=== PATIENT | male | born 1945 | race African-American/Black ===

== ENCOUNTER 2025-01-06 14:02 | Emergency (ER) | payer OTHER ==
[~2025-01-06] VITALS: Ht 185.4 cm; Wt 82.6 kg
[2025-01-06 14:08] VITALS: TEMP 98.3
[2025-01-06 15:09] LABS: BASOPHILS % (AUTO) 0.7 % (0.0-2.0); EOSINOPHILS # (AUTO) 0.1 K/uL (0.0-0.7); EOSINOPHILS % (AUTO) 1.4 % (0.0-6.0); HEMATOCRIT 30 % (39-51); LYMPHOCYTES # (AUTO) 1.1 K/uL (0.8-4.8); LYMPHOCYTES % (AUTO) 22.7 % (20.0-44.0); MEAN CORPUSCULAR HEMOGLOBIN 33 PG (26.0-33.0); MEAN CORPUSCULAR HGB CONC 33 g/dl (31.0-36.0); MEAN CORPUSCULAR VOLUME 99 fL (80-96); MONOCYTES # (AUTO) 0.6 K/uL (0.1-1.30); MONOCYTES % (AUTO) 11.1 % (2.0-12.0); NEUTROPHILS # (AUTO) 3.2 K/uL (1.8-8.9); NEUTROPHILS % (AUTO) 64.1 % (43.0-81.0); PLATELET COUNT (AUTO) 130 K/uL (150-450); RED BLOOD CELL COUNT(AUTO) 3.01 MIL/uL (4.5-6.0); RED CELL DISTRIBUTION WIDTH 15.3 % (11.5-15.0)
[2025-01-06 15:20] LABS: CALCIUM, SERUM 8.6 mg/dL (8.5-10.1); CARBON DIOXIDE 25 mmol/L (21-32); CHLORIDE 102 mmol/L (98-107); CREATININE 2.4 mg/dL (0.6-1.3); GLUCOSE 112 mg/dL (74-106); POTASSIUM 4.3 mmol/L (3.5-5.1); SODIUM SERUM 135 mmol/L (136-145); UREA NITROGEN, BLOOD 32 mg/dL (7-18)
[2025-01-06 15:23] LABS: ACETAMINOPHEN <10 ug/ml (10-30); ALCOHOL, BLOOD < 3 mg/dL (0-10); SALICYLATE 2.1 mg/dL (2.8-20.0)
[2025-01-06 17:33] LABS: APPEARANCE,URINE CLEAR (CLEAR); BILIRUBIN,URINE Negative (NEGATIVE); BLOOD, URINE Small Ery/uL (NEGATIVE); COLOR,URINE YELLOW (YELLOW); KETONES,URINE Negative (NEGATIVE); LEUKOCYTE ESTERASE ,URINE Small (NEGATIVE); PROTEIN,URINE Negative (NEGATIVE); UGLUCOSE Negative (NEGATIVE); UROBILINOGEN,URINE 0.2 EU/dL (0.2)
[2025-01-06 17:36] LABS: NITRITE, URINE NEGATIVE (NEGATIVE)
[2025-01-06 17:37] LABS: ADD URINE CULTURE YES; BACTERIA,URINE Few /HPF (None Seen); SQUAMOUS EPITHELIAL CELL,UR Rare /HPF (None Seen)
[2025-01-06 18:35] VITALS: BP 131/68; O2SAT 98
== END 2025-01-06 23:34 | disposition short-term general hospital (02) ==
LOC: ER 14:05
DX: R41.82 Altered mental status, unspecified (principal); E03.9 Hypothyroidism, unspecified; E86.0 Dehydration; I25.10 Atherosclerotic heart disease of native coronary artery without angina pectoris; N18.9 Chronic kidney disease, unspecified; N40.0 Benign prostatic hyperplasia without lower urinary tract symptoms; G40.909 Epilepsy, unspecified, not intractable, without status epilepticus; D64.9 Anemia, unspecified; Z86.73 Personal history of transient ischemic attack (TIA), and cerebral infarction without residual deficits; Z88.1 Allergy status to other antibiotic agents; Z88.6 Allergy status to analgesic agent; Z79.899 Other long term (current) drug therapy; W01.0XXA Fall on same level from slipping, tripping and stumbling without subsequent striking against object, initial encounter; Y93.89 Activity, other specified; Y92.091 Bathroom in other non-institutional residence as the place of occurrence of the external cause; Y99.8 Other external cause status
CPT/HCPCS: 36415; 70450-TC; 80048-TC; 81001; 84443-TC; 85025-TC; G0480